=== PATIENT | male | born 2000 | race Hispanic/Latino ===

== ENCOUNTER 2024-10-26 15:07 | Emergency (ER) | payer SELFPAY ==
[2024-10-26 15:25] VITALS: BP 110/76
[2024-10-26 16:01] LABS: COVID-19 Antigen Negative (Negative)
[2024-10-26 18:44] VITALS: BP 136/81
[2024-10-26 19:00] VITALS: BP 143/91
--- NOTE | 2024-10-26 19:04 | ED.GENMED ---
History of Present Illness
General
Chief Complaint: Cold/Flu/URI Symptoms
Time Seen by Provider: 10/26/24 18:49
History of Present Illness
History of Present Illness:
Patient is a 24-year-old male otherwise healthy presents to the emergency department with cough, chills, body ache, sore throat. Present for the past 3 to 4 days. Has a roommate with similar symptoms notes that he is feeling slightly short of
breath when having coughing fits and is having a headache while coughing. Denies neck stiffness. Endorses nasal congestion. Denies rash. Denies leg swelling.
Phy Exam
Physical Exam
Physical Exam:
GENERAL APPEARANCE: NAD, well developed/ well nourished
EYES lids/conjunctiva normal
EARS/NOSE/THROAT Mucous membranes moist, uvula midline without oral pharyngeal erythema, exudate or swelling
HEAD/NECK normocephalic atraumatic, neck is supple.
RESPIRATORY respiratory effort normal, speaks in full sentences, no accessory muscle use. No rales. Slight wheeze noted anteriorly. Frequent coughing episodes
CARDIAC Regular rate and rhythm, no edema.
ABDOMINAL Soft, ND/NT. No pulsatile masses on exam, rebound tenderness, Carter sign or pain over Mcburney's point.
MUSCLES/EXTREMITIES No abnormal range of motion, no swelling.
SKIN Warm, pink and dry. No rashes
NEUROLOGICAL Speech is clear and appropriate. Normal level of consciousness. 5/5 strength in all extremities.
PSYCH Normal mood and affect. Judgement/competence is appropriate
Course
Orders/Labs/Results
Orders:
Orders
10/26/24 15:29
CXR2 [CR Chest - 2 Views ] Urgent
Comment:
Reason For Exam: cough, SOB
10/26/24 15:32
COVID-19 Antigen Urgent
Source: Nasal Swab
Influenza A+B Rapid Molecular Urgent
MAGALY Source: Nasal Swab
Specimen Description:
10/26/24 19:05
Dexamethasone Sod Phosphate [Decadron] 10 mg IM NOW STA
Ibuprofen [Motrin] 800 mg PO NOW STA
Ipratropium/Albuterol Sulfate [Duoneb] 3 ml INH R NOW STA
Vital Signs
Initial and Last Documented VS:
Initial Vital Signs
Temp Pulse Resp BP Pulse Ox
98.7 F 90 18 110/76 99
10/26/24 15:25 10/26/24 15:25 10/26/24 15:25 10/26/24 15:25 10/26/24 15:25
Last Documented Vital Signs
Temp Pulse Resp BP Pulse Ox
98.7 F 81 18 124/79 98
10/26/24 15:10/26/24 20:00 10/26/24 20:00 10/26/24 20:00 10/26/24 20:00
*Critical Care Note
Total Time (30-74mins, 75-104mins- exclusive of procedures): Not Applicable
ED Attending Note
ED Attending Note
ED Attending Note:
patient with viral syndrome
no hypoxia
no increased wob
no infiltrates on xray
wheezing noted, improved with nebs
hx of childhood asthma
will rx nebulizer tx
given decadron
-
Portions of this chart may have been created with voice recognition software.� Occasional wrong word or��sound alike� substitutions may have occurred due to the inherent limitations of voice recognition software.
Discharge Plan
Departure
Patient Disposition: Home (Routine Discharge)
Date of Disposition: 10/26/24
Time of Disposition: 20:10
Patient with high blood pressure during this ER visit?: No
Discharge Problem:
Acute viral syndrome, Acute bronchospasm
Instructions: Viral Upper Respiratory Infection, Adult (DC)
Prescriptions:
New
(DME) nebulizer and compressor Device
See Rx Instructions .Route Qty: 1 0RF
Rx Instructions:
As directed
albuterol sulfate 2.5 mg /3 mL (0.083 %) solution for nebulization
2.5 mg inhalation QID PRN (Reason: shortness of breath or wheezing) Qty: 75 0RF
Referrals:
NONE,* [Family Provider] -
Stand Alone Forms: Return to Work
Interventions
Interventions:
*Risk Screen - Suicide Last Done: 10/26/24 15:25
*General Assessment Last Done: 10/26/24 15:25
*Neglect/Abuse Screening Last Done: 10/26/24 15:25
*ED- Fall Risk Assessment Last Done: 10/26/24 20:12
*ED COVID-19 Vaccine History Last Done: 10/26/24 15:25
*Nursing Disposition Last Done: 10/26/24 20:12
ED- Pulmonary Assessment Last Done: 10/26/24 19:45
Discharge Date and Time
Print Language: [id number]
[2024-10-26] MEDS: DUONEB 3 ML INH (19:39)
[2024-10-26] MEDS: MOTRIN 800 MG PO (19:39)
[2024-10-26] MEDS: DECADRON 10 MG IM (19:39)
[2024-10-26 19:46] VITALS: BP 136/84
[2024-10-26 20:00] VITALS: BP 124/79
== END 2024-10-26 20:47 | disposition home or self-care (01) ==
LOC: EMR 15:07
PROVIDERS: Emergency Medicine; EMERGENCY PHYSICIAN Emergency Medicine
DX: B34.9 Viral infection, unspecified (principal); J98.01 Acute bronchospasm
CPT/HCPCS: 99283; 94640; 96372; 71046; 87502; 87811

== ENCOUNTER 2025-02-25 03:04 | Emergency (ER) | payer SELFPAY ==
[2025-02-25 03:16] VITALS: BP 138/86
[2025-02-25] MEDS: MOTRIN 400 MG PO (03:28)
--- NOTE | 2025-02-25 03:58 | ED.GENMED ---
History of Present Illness
General
Chief Complaint: Musculo-Skeletal Complaint
Source: patient
Exam Limitations: none
Time Seen by Provider: 02/25/25 03:27
Nursing documentation reviewed up to this point in time: agreed with
History of Present Illness
History of Present Illness:
Patient is a 24-year-old male who presents to the emergency department with left ankle injury. He states that when he was leaving work this evening he was running and lost his footing inverting his left ankle. He fortunately did not fall to the
ground or sustain any other injuries. He states that initially he was able to put weight on his left ankle although since arriving home pain began to worsen significantly. He at this point is unable to weight-bear. He denies any numbness/tingling
of left ankle or foot. He denies any pain in his left knee.
There was no head strike or other associated injuries. Patient has not taken any Tylenol or Motrin.
Review of Systems
Review of Systems
Allergies reviewed?: Yes
All Other Systems: ROS reviewed and negative except as documented in HPI and ROS
Phy Exam
Physical Exam
Physical Exam:
Vitals: Hypertensive, otherwise vital signs stable. Afebrile
General: Patient is well appearing, no acute distress
Skin: Warm and dry, no rashes or lesions
Head: Normocephalic, atraumatic
Throat: Protecting airway
Neck: Normal ROM, no cervical spine tenderness
Cardiac: Regular rate
Pulm: No apparent respiratory distress
Abdomen: Nondistended
Extremities: Reproducible tenderness just anterior to left lateral malleolus at insertion of ATFL. Mild tenderness of dorsal left foot at lateral aspect no focal tenderness at left calcaneus or left lateral/medial malleolus. No bony tenderness of
left lower leg or knee. Patient has full ability to flex/extend her left knee with somewhat limited dorsiflexion/plantarflexion at left ankle secondary to pain. 2+ palpable left DP pulse with normal sensation and capillary refill.
Neuro: Grossly intact
Psychiatric: Normal affect.
Course
Orders/Labs/Results
Orders:
Orders
02/25/25 03:21
Foot, Left 3 View [CR Foot - Left Min 3 Views] Urgent
Comment:
Reason For Exam: injury
02/25/25 03:26
Ibuprofen [Motrin] 400 mg .ROUTE .STK-MED ONE
02/25/25 03:28
Ibuprofen [Motrin] 400 mg PO NOW STA
02/25/25 03:33
Ankle, left 3 view CR [CR Ankle - Left Min 3 Views ] Urgent
Comment:
Reason For Exam: fall, ankle pain
02/25/25 04:13
Crutches-Treatment ONCE
Ortho Boot Left- Treatment ONCE
Short or tall?: Tall
Vital Signs
Initial and Last Documented VS:
Initial Vital Signs
Temp Pulse Resp BP Pulse Ox
97.6 F 72 20 138/86 99
02/25/25 03:16 02/25/25 03:16 02/25/25 03:16 02/25/25 03:16 02/25/25 03:16
Last Documented Vital Signs
Temp Pulse Resp BP Pulse Ox
97.6 F 59 14 137/79 100
02/25/25 03:16 02/25/25 04:32 02/25/25 04:32 02/25/25 04:32 02/25/25 04:32
MDM/Problems Addressed
Differential Diagnosis Includes:
Not limited to: Ankle sprain, ankle fracture, foot sprain, Lisfranc etc.
MDM/Problems Addressed:
24-year-old male presenting with left ankle pain following inversion injury earlier today. No other associated injuries or head strike. Vitals and physical exam as above. No obvious deformity of left lower extremity however reproducible
tenderness just anterior to left lateral malleolus. Neurovascularly intact. X-ray of left foot and left ankle without evidence of acute fracture. Ultimately�suspect ankle sprain. Will place patient in Ortho boot and provide crutches as needed
for ambulation over the next few days. Discussed rest, ice, compression, elevation. Ortho follow-up as needed discussed. Patient stable for discharge home
Chronic conditions affecting care:
N/A
Acute Exacerbation and/or Progression of Chronic Illness:
N/A
*Radiology
Radiology exam reviewed: preliminary read by ED provider (Left foot and left ankle x-ray reviewed by me-no acute fracture)
*Pulse Oximetry
SaO2: 99
Oxygen Mode of Delivery: Room air
Patient hypoxic: no
*EKG
Interpreted by ED Provider?: NA
*Telephone Quotation Clerk Interpretation
Rate: Telephone Quotation Clerk- N/A
*Critical Care Note
Total Time (30-74mins, 75-104mins- exclusive of procedures): Not Applicable
ED Attending Note
-
Portions of this chart may have been created with voice recognition software.� Occasional wrong word or��sound alike� substitutions may have occurred due to the inherent limitations of voice recognition software.
Discharge Plan
Departure
Patient Disposition: Home (Routine Discharge)
Date of Disposition: 02/25/25
Time of Disposition: 04:13
Patient with high blood pressure during this ER visit?: Yes
Discharge Problem:
Injury of left ankle
Instructions: How to Use Crutches, Ibuprofen, Ankle sprain - ED (DC)
Prescriptions:
No Action
No Current Medications
0
Referrals:
López Jones MD [Active, Orthopedics] - As needed
Stand Alone Forms: Return to Work
Activity Restrictions/Additional Instructions:
RETURN TO THE EMERGENCY DEPARTMENT WITH ANY INTRACTABLE PAIN, NUMBNESS/TINGLING OF LEFT ANKLE OR FOOT, WORSENING IN CURRENT SYMPTOMS, OR ANY OTHER CONCERNS
- As discussed�I did not see any fracture of your ankle or foot. You likely sustained an ankle sprain.
- Please wear Ortho boot and utilize crutches as needed for ambulating over the next 1 to 2 weeks. Continue to ice, elevate left ankle frequently over the next few days. Take Tylenol and/or Motrin as needed for pain.
- Follow-up with orthopedics for further evaluation/management to ensure that your symptoms improve
Monitor your symptoms closely and return to the emergency department with any acute worsening/new symptoms or any other concerns
Interventions
Interventions:
*Risk Screen - Suicide Last Done: 02/25/25 03:16
*General Assessment Last Done: 02/25/25 03:16
*Neglect/Abuse Screening Last Done: 02/25/25 03:16
*ED- Fall Risk Assessment Last Done: 02/25/25 03:16
*ED COVID-19 Vaccine History Last Done: 02/25/25 03:16
*Nursing Disposition Last Done: 02/25/25 04:36
ED-Musculoskeletal Assessment Last Done: 02/25/25 04:21
Discharge Date and Time
Discharge Date/Time: 02/25/25 04:36
Print Language: [id number]
[2025-02-25 04:32] VITALS: BP 137/79
== END 2025-02-25 04:36 | disposition home or self-care (01) ==
LOC: EMR 03:04
PROVIDERS: EMERGENCY PHYSICIAN Emergency Medicine
DX: S99.912A Unspecified injury of left ankle, initial encounter (principal); X50.1XXA Overexertion from prolonged static or awkward postures, initial encounter; Y93.02 Activity, running
CPT/HCPCS: 99283; 73610; 73630